=== PATIENT | male | born 1985 | race Caucasian/White ===

== ENCOUNTER 2018-08-03 14:17 | Emergency (ER) | payer OTHER ==
[~2018-08-03] VITALS: Ht 182.9 cm; Wt 86.2 kg
[2018-08-03 15:10] VITALS: BP 143/81
== END 2018-08-03 15:13 | disposition home or self-care (01) ==
LOC: M.ERS 14:17
DX: S61.215A Laceration without foreign body of left ring finger without damage to nail, initial encounter (principal); W27.8XXA Contact with other nonpowered hand tool, initial encounter; Y93.89 Activity, other specified; Y92.89 Other specified places as the place of occurrence of the external cause; Y99.8 Other external cause status